=== PATIENT | female | born 1955 | race Caucasian/White ===

== ENCOUNTER 2016-08-26 18:29 | Inpatient (IN) | payer MEDICAID ==
[2016-08-26 19:01] VITALS: BP 140/60
--- NOTE | 2016-08-26 19:01 | ED Physician Chart ---
Chief Complaint/HPI - Patient Information Date Seen:: 08/26/16 Time Seen:: 18:58 Chief Complaint:: rt hip/leg pain History of Present Illness:: [place] sent [place] for severe pain at rt hip/leg she is unable to tell me if this pain in new or old. no hx of trauma. pmh- schizophrenia only w no escalation of difficult behavior relayed to me from facility. pt is historically ambulatory and per ems she has been complaining x last 4 days. staff say she is still walking. pt is dnr. pt is cranky and short tempered and difficult to get hx out of ? due to dementia ? she indicates her internal rt mid thigh as source of pain but shrieks if i lightly touch near the hip. Allergies:: Allergies Allergy/AdvReac Type Severity Reaction Status Date / Time No Known Allergies Allergy Verified 08/26/16 18:56 Historian:: Patient Review:: Transfer documents Reviewed Review of Systems - Review of Systems General/Constitutional: No fever, No chills, No weight loss, No weakness, No diaphoresis, No edema, No loss of appetite Skin: No skin lesions, No rash, No bruising Head: No headache, No light-headedness Eyes: No loss of vision, No pain, No diplopia ENT: No earache, No nasal drainage, No sore throat, No tinnitus Neck: No neck pain, No swelling, No thyromegaly, No stiffness, No mass noted Cardio Vascular: No chest pain, No palpitations, No PND, No orthopnea, No edema Pulmonary: No SOB, No cough, No sputum, No wheezing GI: No nausea, No vomiting, No diarrhea, No pain, No melena, No hematochezia, No constipation, No hematemesis G/U: No dysuria, No frequency, No hematuria Musculoskeletal: Bone or joint pain, No back pain, No muscle pain Endocrine: No polyuria, No polydipsia Psychiatric: No prior psych history, No depression, No anxiety, No suicidal ideation Hematopoietic: No bruising, No lymphadenopathy Allergic/Immuno: No urticaria, No angioedema Neurological: No syncope, No focal symptoms, No weakness, No paresthesia, No headache, No seizure, No dizziness, No confusion, No vertigo Past Medical History - Past Medical History Past Medical History: Dementia Social History: Care Facility Psychiatricy History: Schizophrenia Medication: Reviewed Family Medical History - Family Member Sister History Unknown: Yes Physical Exam - Physical Examination General/Constitutional: Awake, Well-developed, well-nourished, Alert, No distress, GCS 15, Non-toxic appearing Head: Atraumatic Eyes: Lids, conjuctiva normal, PERRL, EOMI Skin: Nl inspection, No rash, No skin lesions, No ecchymosis, Well hydrated, No lymphadenopathy ENMT: External ears, nose nl, Nasal exam nl, Lips, teeth, gums nl Neck: Nontender, Full ROM w/o pain, No JVD, No nuchal rigidity, No bruit, No mass, No stridor Respiratory: Nl effort/Exclusion, Clear to Auscultation, No Wheeze/Rhonchi/Rales Cardio Vascular: RRR, No murmur, gallop, rubs, NL S1 S2 GI: No tenderness/rebounding/guarding, No organomegaly, No hernia, Normal BS's, Nondistended, No mass/bruits, No McBurney tenderness : No CVA tenderness Extremities: No tenderness or effusion, Full ROM, normal strength in all extremities, No edema, Normal digits & nails Other Extremities comments:: she indicates her internal rt mid thigh as source of pain but shrieks if i lightly touch near the hip. pulses and sensation ok at foot. color ok at foot. no homans sx. no calf or leg edema. Neuro/Psych: Alert/oriented, DTR's symmetric, Normal sensory exam, Normal motor strength, No focal deficits Misc: normal gait, Normal back, No paraspinal tenderness Labs/Radiology/EKG Results - Radiology Results Results: xray rt hip pos intertroch fx. pelvis no pelvic fx ED Septic Shock - . Is Septic Shock (SBP<90, OR Lactate>4 mmol\L) present?: No Reassessment (Disposition) - Reassessment Reassessment:: case dw dr sands will admit... (06p) Reassessment Condition:: Improved - Diagnosis Diagnosis:: intertrochanteric fx of rt hip - Patient Disposition Admitted to:: Med/Surg Condition at Disposition:: Improved
[2016-08-26] MEDS ORDERED: Sodium Chloride 0.9% 1,000 ML IV ONE (19:20)
[2016-08-26] MEDS ORDERED: Morphine Sulfate 4 mg/mL 1mL Syr ONE (19:32)
[2016-08-26 20:29] LABS: % NEUTROPHILS 69.7 % (40.0-80.0)
[2016-08-26] MEDS ORDERED: HYDROmorphone 1 mg/mL 1mL Syr IVP STA (20:32)
[2016-08-26 20:34] LABS: % BASOPHILS 0.2 % (0.0-2.0); % EOSINOPHILS 0.4 % (0.0-5.0); % LYMPHOCYTES 20.4 % (20.0-50.0); % MONOCYTES 9.3 % (2.0-10.0); HEMATOCRIT 35.3 % (35.0-45.0); HEMOGLOBIN 11.7 gm/dL (11.7-15.5); MEAN CELL VOLUME 77.6 fl (81-100); MEAN CORPUSCULAR HEMOGLOBIN 25.8 pg (27.0-31.0); MEAN CORPUSCULAR HGB CONC 33.2 pg (28.0-36.0); MEAN PLATELET VOLUME 9.5 fl; NEUTROPHILE ABSOLUTE 9.3 Th/cmm (1.8-8.0); RED BLOOD COUNT 4.55 Mil/cmm (3.80-5.10)
[2016-08-26] MEDS ORDERED: HYDROmorphone 1 mg/mL 1mL Syr ONE (20:34)
[2016-08-26 20:41] LABS: PLATELET COUNT 192 Th/cmm (150-400); WHITE BLOOD COUNT 13.3 Th/cmm (4.8-10.8)
[2016-08-26 20:42] LABS: ALB/GLOB RATIO 1.3 (1.0-1.8); ALKALINE PHOSPHATASE 79 U/L (34-104); ANION GAP 9.8 (7.0-16.0); BILIRUBIN,TOTAL 0.5 mg/dL (0.3-1.0); BUN - UREA NITROGEN 15 mg/dL (7-25); CALCIUM SERUM 10.3 mg/dL (8.6-10.3); CARBON DIOXIDE 23.1 mEq/L (21.0-31.0); CHLORIDE 100 mEq/L (98-107); CREATININE - SERUM 0.6 mg/dL (0.6-1.2); GLUCOSE 151 mg/dL (70-105); POTASSIUM SERUM 3.9 mEq/L (3.5-5.1); SGOT 26 U/L (13-39); SGPT/ALT 20 U/L (7-52); SODIUM SERUM 129 mEq/L (136-145)
[2016-08-26] MEDS ORDERED: Magnesium Hydroxide (MOM) 30 mL UDC PO PRN (23:19)
[2016-08-26] MEDS ORDERED: Albuterol Nebulizer 2.5mg/3mL IH PRN (23:20)
[2016-08-26] MEDS ORDERED: D5-0.9%NS 1,000 ML IV SCH (23:30)
[2016-08-27] MEDS: Levofloxacin 500mg/100mL 500 MG/100 ML BAG IV ONE ×2 (01:23→01:29)
--- NOTE | 2016-08-27 05:00 | Admit Criteria Form ---
Admit Criteria Forms - Admit Criteria Diagnosis: MUSCULOSKELETAL DISEASE [facility] Clinical Indications for Admission to Inpatient Care (Place 'X' for any and all applicable criteria): Hospital admission is needed for appropriate care of the patient because of 1 or more of the following: [X ]I. Fracture, dislocation, or other musculoskeletal injury requiring inpatient care(medical) as indicated by 1 or more of the following(4)(5)(6)(7) [ ]a) Vertebral fracture requiring observation for instability or neurologic compromise (8) [ ]b) Compartment syndrome (proven or cannot be ruled out during observation level of care) (9) [ ]c) Limb-threatening injury [ ]d) Major injury requiring inpatient stabilization such as traction initiation or external fixation before internal fixation or closure of complex or open fracture [X ]e) Major injury requiring inpatient treatment after emergency or observation level care (as appropriate) [ ]f) Severe pain requiring acute inpatient management [ ]g) Injury with suspicion of abuse or neglect (eg., child, dependent elderly) [ ]II. Newly diagnosed or suspected bone, joint, or orthopedic device infection (e.g., osteomyelitis, septic arthritis) needing 1 or more of the following(1)(2)(3) [ ]a) IV antibiotics that cannot be initiated in other than inpatient setting (e.g., patient too unstable or home infusion not available) [ ]b) Device removal or replacement [ ]c) Bone or soft tissue debridement [ ]d) Joint drainage (drain placement or repetitive aspirations) [ ]III. Severe rheumatologic disease (e.g., systemic lupus erythematosus, rheumatoid arthritis) with complications or comorbidities (Also use Optimal Recovery Care Criteria or General Recovery Criteria as appropriate on the basis of predominant condition), including 1 or more of the following( 10)(11)(12)(13) [ ]a) Severe infection (e.g., [employer] infection, sepsis) (14) [ ]b) Respiratory complications, including 1 or more of the following : [ ]i) Pleural effusion with respiratory compromise [ ]ii) Pulmonary hypertension with congestive failure [ ]iii) Respiratory failure [ ]iv) Pulmonary hemorrhage (15) [ ]c) Hematologic disease, including 1 or more of the following: [ ]i) Coagulopathy with bleeding [ ]ii) Thrombosis with hypercoagulable state [ ]iii) Thrombotic thrombocytopenic purpura [ ]d) Cerebritis with seizures, psychosis, or other severe abnormalities [ ]e) Vertebral destruction with monitoring needed for cervical myelopathy& possible respiratory compromise [ ]f) Exacerbation that requires inpatient treatment (e.g., intravenous immunosuppression) (16) [ ]g) Acute renal failure [ ]h) Cerebritis with seizures, psychosis, Altered mental status, or other neurologic abnormalities [ ]i) Pericardial effusion with tamponade [ ]j) Vertebral destruction, with monitoring needed for cervical myelopathy and possible respiratory compromise [ ]IV. Severe vasculitis with complications or comorbidities (Also use Optimal Recovery Care Criteria General Recovery Criteria as appropriate on the basis of predominant condition), including 1 or more of the following(11)(12)(17)(18)(19)(20) [ ]a) Exacerbation that requires inpatient treatment (e.g., intravenous immunosuppression) (19)(21) [ ]b) Pulmonary hemorrhage (15) [ ]c) [employer] vasculitis with seizures, psychosis, Altered mental status that is severe or persistent, or other severe abnormalities (22) [ ]d) Cerebral infarction [ ]e) Gastrointestinal ischemia [ ]f) Gangrene or threatened amputation [ ]g) Renal failure (16) [ ]h) Other significant complications of vasculitis ( eg., tissue or organ ischemia, organ dysfunction ) [ ]V. Severe myopathy as indicated by 1 or more of the following (28)(29) [ ]a) New onset of airway compromise or inability to swallow [ ]b) Respiratory deterioration with observation needed for impending respiratory failure [ ]c) Exacerbation that requires inpatient treatment (e.g., intravenous immunosuppression) [ ]. Severe crystal gout (arthropathy) indicated by 1 or more of the following (23)(24) [ ]a) Severe pain requiring acute inpatient management [ ]b) Exacerbation that requires inpatient treatment (e.g., intravenous treatment) [ ]VII.Rhabdomyolysis and 1 or more of the following (25)(26)(27) [ ]a) Acute renal failure [ ]b) Need for intravenous hydration after emergency or observation level care (as appropriate) [ ]c) Inability to maintain oral hydration [ ]d) Change in mental status [ ]e) Electrolyte abnormality that remains after emergency or observation level care (as appropriate) [ ]VIII Post amputation complication, as indicated by ANY ONE of the following [ ]a) Infection [ ]b) Dehiscence [ ]c) Myodesis failure [ ]IX. Severe pain requiring acute inpatient management due to musculoskeletal condition [ ]X. Musculoskeletal Disease and ALL of the following: [ ]a) Symptom or finding for which emergency and observation care have failed or are not considered appropriate (Use General Criteria: Observation Care as appropriate) [ ]b) Presence of ANY ONE of the following [ ]i) A General Admission Criteria [ ]ii) A Pediatric General Admission Criteria The [facility] content created by [facility] has been revised. The portions of the content which have been revised are identified through the use of italic text or in bold, and [facility] has neither reviewed nor approved the modified material. All other unmodified content is copyright [facility]. Please see references footnoted in the original [facility] edition 2016 Admit Criteria Met?: Yes
[2016-08-27] MEDS: Hydrocodone/APAP 5mg/325mg Tab PO PRN ×2 (06:04→09:11)
[2016-08-27] MEDS ORDERED: Pneumococcal Vaccine 0.5 mL Vial IM ONE (06:51)
[2016-08-27 07:27] LABS: ANION GAP 7.5 (7.0-16.0); BUN - UREA NITROGEN 12 mg/dL (7-25); CALCIUM SERUM 9.2 mg/dL (8.6-10.3); CARBON DIOXIDE 24.3 mEq/L (21.0-31.0); CHLORIDE 106 mEq/L (98-107); CREATININE - SERUM 0.6 mg/dL (0.6-1.2); GLUCOSE 138 mg/dL (70-105); POTASSIUM SERUM 3.8 mEq/L (3.5-5.1); SODIUM SERUM 134 mEq/L (136-145)
[2016-08-27 07:35] LABS: HEMOGLOBIN 10.2 gm/dL (11.7-15.5); RED BLOOD COUNT 3.97 Mil/cmm (3.80-5.10)
[2016-08-27 07:36] LABS: HEMATOCRIT 30.8 % (35.0-45.0); MEAN CELL VOLUME 77.6 fl (81-100); MEAN CORPUSCULAR HEMOGLOBIN 25.7 pg (27.0-31.0); MEAN CORPUSCULAR HGB CONC 33.2 pg (28.0-36.0); PLATELET COUNT 175 Th/cmm (150-400); RED CELL DISTRIBUTION WIDTH 12.9 % (11.5-20.0)
[2016-08-27 07:37] LABS: % BASOPHILS 0.2 % (0.0-2.0); % EOSINOPHILS 0.5 % (0.0-5.0); % LYMPHOCYTES 19.3 % (20.0-50.0); % MONOCYTES 11.1 % (2.0-10.0); % NEUTROPHILS 68.9 % (40.0-80.0)
[2016-08-27] MEDS ORDERED: Calcium Carb/Vit D 500 mg/200 U Tab PO SCH (09:00)
--- NOTE | 2016-08-27 11:16 | Diagnostic Imaging Report ---
Pelvis (3 views) HISTORY: Pain The exam demonstrates mild to moderately displaced right intratrochanteric fracture. The femoral head remains located within the acetabulum. Surgical changes noted about the left hip. IMPRESSION: 1. Mild to moderately displaced right intratrochanteric fracture.
[2016-08-27] MEDS: Oxybutynin Chloride 5 mg ER Tab PO SCH ×2 (17:16→17:23)
--- NOTE | 2016-08-27 17:58 | Consultation ---
DATE OF CONSULTATION: 08/27/2016 AGE: 61. SEX: Female. PHYSICIANS: Dr. Peralta, also Dr. Kay. TYPE OF THE REPORT: Psychiatric Consultation. REASON FOR THE CONSULT: Agitation. HISTORY OF PRESENT ILLNESS: The patient is a 61-year-old female, who [facility]. The patient was admitted to the hospital and has been agitated and Dr. Peralta asked me to evaluate the patient. The patient is confused and agitated. The patient was not able to answer any of my questions coherently. The patient was in bed, crawling and talking to herself. The patient was not able to tell me her age or where she lives and she told me "I live here." She also was actively responding to the stimuli. PAST PSYCHIATRIC HISTORY: The patient seems to have history of psychosis. PAST MEDICAL HISTORY: As per Dr. Peralta. SOCIAL HISTORY: The patient lives in [facility] . No other information known at this time. ALLERGIES: No known allergies. MENTAL STATUS EXAM: The patient appears older than her stated age, disheveled. Flat affect. Irritable moods. Restless. Thought processes are circumstantial with flight of ideas. The patient was not able to answer questions coherently. The patient did not answer questions regarding hallucinations or delusions, but actively hallucinating. The patient denies suicidal or homicidal ideations. The patient is alert, but confused, and she did not know where she lived or where she is at or today's date. Poor insight and judgment. ASSESSMENT: PRIMARY DIAGNOSIS: Unspecified psychosis. SECONDARY DIAGNOSIS: Rule out chronic paranoid schizophrenia. TREATMENT PLAN: We will increase Zyprexa and Depakote. We will reevaluate and monitor her behavior. Thanks to Dr. Peralta and will follow with you. JOB# [id number]
[2016-08-27] MEDS ORDERED: DEPAKOTE PO SCH (21:00)
[2016-08-27] MEDS ORDERED: ZYPREXA 2.5 MG PO SCH (21:00)
[2016-08-27] MEDS ORDERED: Levofloxacin 500mg/100mL Premix Bag IV SCH (21:00)
[2016-08-27] MEDS: Morphine Sulfate 2 mg/mL 1mL Syr IVP PRN (21:27)
[2016-08-28] MEDS: Morphine Sulfate 2 mg/mL 1mL Syr IVP PRN (03:45)
--- NOTE | 2016-08-28 04:25 | Consultation ---
DATE OF CONSULTATION: 08/27/2016 HISTORY OF PRESENT ILLNESS: The patient is a 61-year-old lady admitted to [facility]/transferred from [facility] on 08/26/2016 at 10:10 p.m. Little history accompanies the patient. She is not able to tell me what, where, when, or how she was injured. She does not even know she had surgery on her other hip, so I have very little to go on. The records indicate that she was transferred because she seemed to be having pain in her pelvis. X-rays here showed a hip fracture, so I was called in orthopedic consultation by the admitting physician regarding her hip fracture. Past history elsewhere in the records, it was indicated she was admitted here in 2012 with diagnoses of hypertension, osteoporosis, schizophrenia, COPD, old CVA. X-rays, I looked at images in our PACS of the hips and pelvis, there is a Madrid-type hip screw in the left hip with a short neck. There is a fairly recent comminuted intertrochanteric fracture, right hip with displacement. ORTHOPEDIC DIAGNOSES: Intertrochanteric fracture, right hip, closed, displaced. RECOMMENDATIONS: The patient is medically optimized and cleared for surgery. She can have open reduction and internal fixation of this fracture, which will allow to heal in normal configuration and allow her to have therapy be out of bed and start ambulation. Thank you for this interesting referral. JOB# [id number]
[2016-08-28 05:55] LABS: HEMATOCRIT 27.8 % (35.0-45.0); HEMOGLOBIN 9.2 gm/dL (11.7-15.5); MEAN CELL VOLUME 77.4 fl (81-100); MEAN CORPUSCULAR HEMOGLOBIN 25.5 pg (27.0-31.0); MEAN PLATELET VOLUME 9.9 fl; PLATELET COUNT 168 Th/cmm (150-400); WHITE BLOOD COUNT 10.3 Th/cmm (4.8-10.8)
[2016-08-28 06:05] LABS: INR 0.99 (0.5-1.4); PROTHROMBIN TIME (TEST) 10.3 SECONDS (9.5-11.5)
[2016-08-28 07:16] LABS: NEUTROPHILS 56 % (40-80); TOTAL CELLS COUNTED 100
[2016-08-28 07:17] LABS: MICROCYTOSIS 1+; PLATELET ESTIMATE ADEQUATE (NORMAL)
--- NOTE | 2016-08-28 08:05 | Progress Notes ---
DATE: 08/28/2016 SUBJECTIVE: Chart reviewed and the patient interviewed. Also discussed the patient's condition with the staff and reviewed records and labs. The patient still has been complaining of "I'm nervous." The patient also is still anxious and still needs lots of attention. The patient also needs directions. On the other hand, the patient is compliant with taking her medications and the patient denies any side effects of medications. ASSESSMENT: The patient is still paranoid and anxious. TREATMENT PLAN: We will continue to monitor her behavior and continue current psychotropic medications and followup. JOB# [id number]
--- NOTE | 2016-08-28 09:11 | Diagnostic Imaging Report ---
CHEST X-RAY: AP view INDICATION: Preop, shortness of breath COMPARISON: None FINDINGS: There is elevation of right hemidiaphragm. Mild chronic lung changes are noted. There is no focal consolidation or pleural effusions The heart is normal in size. Chronic appearing right distal clavicular fracture is noted. IMPRESSION: No focal consolidation identified. Chronic appearing right distal clavicular fracture. Please correlate clinically.
--- NOTE | 2016-08-28 10:27 | History & Physical ---
ADMIT DATE: 08/27/2016 CHIEF COMPLAINT: Right hip pain. HISTORY OF PRESENT ILLNESS: This is a 61-year-old female with hypertension, schizoaffective disorder, COPD, stroke, was admitted from nursing facility secondary to complaint of right hip pain. The patient was evaluated in the ER, noted to have a right intertrochanteric fracture. The patient is not a best historian, unable to relate the history of injury. PAST MEDICAL HISTORY: As mentioned in history of present illness. PAST SURGICAL HISTORY: Status post ____. ALLERGIES: No known drug allergies. MEDICATIONS: ____ oxybutynin ____ Zyprexa. FAMILY HISTORY: Noncontributory. SOCIAL HISTORY: Avid smoker and nondrinker, no intravenous drug use. The patient does ____ according to the patient, one time, no children. She stated that she does not have any family member, everyone is . REVIEW OF SYSTEMS: GENERAL: Complains not feeling well. HEENT: No blurred vision. NECK: No neck pain. LUNGS: ____ COPD according to medical records. HEART: The patient with hypertension. Denies coronary artery disease. Per previous note, the patient has history of stroke. ABDOMEN: No nausea, vomiting, or pain. GENITOURINARY: The patient denies any increased frequency or dysuria. NEUROLOGIC: No headache, seizure, or syncope. PSYCHIATRIC: As stated above. PHYSICAL EXAMINATION: VITAL SIGNS: Blood pressure 131/58, respirations 18, pulse 78, temperature 98.4. GENERAL: Elderly female, appears stated age, not the most compliant. NECK: Supple. No mass. LUNGS: Equal breath sounds with few rhonchi. HEART: Regular rate and rhythm without appreciable murmurs. ABDOMEN: Soft, nontender, globular. EXTREMITIES: Positive excoriation and atrophy, lower extremity. NEUROLOGIC: Limited, moving all 4 extremities. LABORATORY DATA: WBC 13.3, hemoglobin 9.7 and platelets 182. Sodium 139, potassium 3.9, BUN 54, creatinine 0.6, lactulose 2.01. Rest of the labs within normal range. ASSESSMENT: Right hip fracture, status post fall; hypertension; schizoaffective disorder; chronic obstructive pulmonary disease; stroke; leukocytosis; anemia; hyponatremia. PLAN: We will continue the patient on IV hydration and adequate pain control. I have referred the patient to Psychiatry. Ortho will medically clear the patient. We will continue to monitor the patient closely. Case was discussed with nursing staff. JOB# [id number]
[2016-08-28 12:12] LABS: FOLIC ACID 17.3 ng/mL (>3.0)
--- NOTE | 2016-08-29 01:29 | Discharge Summary ---
DATE OF DISCHARGE: 08/28/2016 CHIEF COMPLAINT: Right hip pain. FINAL DIAGNOSES: Right hip intertrochanteric fracture ____ hypertension, schizoaffective disorder, chronic obstructive pulmonary disease, stroke, leukocytosis, anemia, and electrolyte abnormalities. HISTORY: This is a 61-year-old female with history of hypertension, schizoaffective disorder, COPD, stroke, admitted from nursing facility secondary to right hip pain, the patient was diagnosed with fracture. The patient admitted for further management. PHYSICAL EXAMINATION: VITAL SIGNS: Blood pressure 110/55, respiratory rate is 17, pulse rate of 70, temperature 98.4. GENERAL: Elderly female, appears her stated age. NECK: Supple. No mass. LUNGS: Equal breath sounds, few rhonchi. HEART: Regular rate and rhythm without appreciable murmurs. ABDOMEN: Soft, nontender. EXTREMITIES: Positive excoriations. HOSPITAL COURSE: The patient admitted to medical floor and was seen by Dr. Kay for psych, Dr. Shorty Alexander for Cardiology and was cleared; Dr. Pena for Ortho, the patient is cleared for surgery. The patient had to be transferred to ____ Hospital secondary to malfunctioning OR. The patient to have surgery done at [facility]. CONDITION ON DISCHARGE: Fair. DISCHARGE INSTRUCTIONS: The patient has been signed out to Dr. Chery who will be admitting the patient to [facility] secondary to problems in our operating room. The patient was signed out. JOB# [id number]
--- NOTE | 2016-08-29 09:06 | Consultation ---
DATE OF CONSULTATION: 08/27/[address] Peralta. HISTORY AND PHYSICAL: This is a 61-year-old female patient, who had been complaining of pain in the right hip. Following this, the patient was seen in the Emergency Room at [facility]. The patient was found to have right intertrochanteric fracture and Cardiology consult was requested prior to surgery. PAST MEDICAL HISTORY: Hypertension, schizoaffective disorder, COPD, CVA with late effect. FAMILY HISTORY: Unremarkable. SOCIAL HISTORY: No history of smoking or alcohol abuse. ALLERGIES: None. PHYSICAL EXAMINATION: VITAL SIGNS: Blood pressure 130/80, pulse 70, respirations 20. HEAD: Normocephalic. No lumps or bumps. EYES: Pupils are equal, reactive to light. Fundi show AV nicking, sclerae white, conjunctivae pink. NECK: Carotid 2+. Normal upstroke. JVD flat. Thyroid not palpable. Lymph nodes not palpable. CHEST: Shows increased AP diameter. No kyphosis, scoliosis. LUNGS: Bilateral bronchovesicular breath sounds. HEART: PMI fifth intercostal space with lateral to midclavicular line. S1 and S2. No S3, S4. Systolic murmur, grade 2/6, lower left sternal border without radiation. ABDOMEN: Soft. Liver and spleen are not palpable. No organomegaly. Bowel sounds active. NEUROLOGIC: Unremarkable. EXTREMITIES: Peripheral pulses 2+. No pedal edema. CLINICAL IMPRESSION: Right hip fracture, hypertension, schizoaffective disorder, chronic obstructive pulmonary disease, CVA with late effect, iron-deficiency anemia, hyponatremia. The patient's EKG is unremarkable. The patient is cleared for surgery. JOB# [id number]
== END 2016-08-28 15:30 | disposition short-term general hospital (02) | DRG 340 ==
LOC: ER 18:29 → MSI 22:10
PROVIDERS: ADMIT Internal Medicine; ATTEND Internal Medicine
DX: S72.141A Displaced intertrochanteric fracture of right femur, initial encounter for closed fracture (principal); F03.90 Unspecified dementia, unspecified severity, without behavioral disturbance, psychotic disturbance, mood disturbance, and anxiety; E87.1 Hypo-osmolality and hyponatremia; F25.9 Schizoaffective disorder, unspecified; F29 Unspecified psychosis not due to a substance or known physiological condition; I10 Essential (primary) hypertension; J44.9 Chronic obstructive pulmonary disease, unspecified; M81.0 Age-related osteoporosis without current pathological fracture; W19.XXXA Unspecified fall, initial encounter; Y93.9 Activity, unspecified; Y92.89 Other specified places as the place of occurrence of the external cause; Y99.8 Other external cause status; I69.30 Unspecified sequelae of cerebral infarction; D50.9 Iron deficiency anemia, unspecified; Z86.73 Personal history of transient ischemic attack (TIA), and cerebral infarction without residual deficits
CPT/HCPCS: 36415-UA; 71010-TC; 72170-TC; 73501; 80048-TC; 80053-TC; 82607-90; 82746-90; 82948-90; 83605; 84443-TC; 85007-TC; 85025-TC; 85027-TC; 85610-TC; 85730-TC; 93005; 94760; 96374; 96375; J1170; J1200; J1644; J1956; J2270; J2405; J7030; J7042; X3900; Z7610